=== PATIENT | female | born 1960 ===

== ENCOUNTER 2021-09-15 10:24 | Outpatient (REF) | payer SELFPAY ==
[2021-09-15 13:08] LABS: Binax Internal Control QC Valid; Binax Now Covid-19 Ag Negative (Negative)
== END 2021-09-15 10:25 | disposition home or self-care (01) ==
LOC: HO.LAB 10:24
PROVIDERS: Visit Provider Internal Medicine
DX: Z20.822 Contact with and (suspected) exposure to COVID-19 (principal)
CPT/HCPCS: 36415; C9803